=== PATIENT | male | born 1950 | race Caucasian/White ===

== ENCOUNTER 2019-01-01 06:50 | Day surgery (SDC) | payer BC, MEDICARE ==
[2018-12-28 14:16] VITALS: BMI 27.4
[~2019-01-01 06:50] MED LIST: LACTATED RINGERS 1,000 ML IV SCH; LIDOCAINE 1% 20 ML VIAL (10MG/ML) FOR IV START INTRADERMA PRN; MIDAZOLAM 2 MG/2 ML VIAL IV PRN
[2019-01-01] MEDS ORDERED: LACTATED RINGERS 1,000 ML IV ONE (07:17)
[2019-01-01 07:28] VITALS: TEMP 98.6
[2019-01-01] MEDS ORDERED: PROPOFOL 10 MG/ML 20 ML VIAL IV ONE (07:42)
[2019-01-01] MEDS ORDERED: fentaNYL (PF) 50 MCG/ML 2 ML AMP ONE (07:42)
[2019-01-01] MEDS ORDERED: MIDAZOLAM 2 MG/2 ML VIAL ONE (07:42)
--- NOTE | 2019-01-01 07:57 | P.GSHP ---
History of Present Illness H&P Date: 01/01/19 Chief Complaint: Colon polyps, family history colon cancer Patient here today for colonoscopy. Last colonoscopy 3 and half years ago. Patient has a personal history of colon polyps. Patient has a family history of colon cancer in his mother and grandparents Past Medical History Past Medical History: No Reported History Additional Past Medical History / Comment(s): hx. colon polyps, family hx. colon cancer History of Any Multi-Drug Resistant Organisms: None Reported Additional Past Surgical History / Comment(s): colonoscopies, blepharoplasty Past Anesthesia/Blood Transfusion Reactions: No Reported Reaction Smoking Status: Never smoker - Past Family History Mother Family Medical History: No Reported History Medications and Allergies Home Medications Medication Instructions Recorded Confirmed Type Multivitamins, Thera [Multivitamin 1 tab PO DAILY 12/28/18 12/28/18 History (formulary)] Allergies Allergy/AdvReac Type Severity Reaction Status Date / Time No Known Allergies Allergy Verified 01/01/19 07:29 Surgical - Exam Vital Signs Temp Pulse Resp BP Pulse Ox 98.6 F 67 14 177/80 98 01/01/19 07:26 01/01/19 07:26 01/01/19 07:26 01/01/19 07:26 01/01/19 07:26 Physical exam: General: Well-developed, well-nourished HEENT: Normocephalic, sclerae nonicteric Abdomen: Nontender, nondistended Extremities: No edema Neuro: Alert and oriented Assessment and Plan (1) Colon polyp Narrative/Plan: Will proceed with colonoscopy Current Visit: Yes Status: Acute Code(s): K63.5 - POLYP OF COLON SNOMED Code(s): 65997945
--- NOTE | 2019-01-01 08:18 | P.PCN ---
Date of Procedure: 01/01/19 Procedure(s) Performed: PREOPERATIVE DIAGNOSIS: Family history of colon cancer, history of polyps POSTOPERATIVE DIAGNOSIS: Small transverse colon polyp, diverticulosis PROCEDURE: Colonoscopy with biopsy ANESTHESIA: MAC SURGEON: William Robbins M.D. SPECIMENS: Transverse colon polyp ENDOSCOPIC PROCEDURE: The patient was placed on the endoscopy table in the left decubitus position. The Olympus colonoscope was inserted into the anus and passed under direct visualization to the base of the cecum. The appendiceal orifice was visualized. From that point the scope was slowly withdrawn inspecting all surfaces carefully. There were no neoplastic inflammatory or polypoid lesions throughout the cecum or ascending colon. In the transverse colon a small polyp was identified and removed using the cold biopsy forceps. The remainder of the transverse descending sigmoid and rectum appeared normal. There was mild left-sided diverticulosis present. Digital rectal examination was normal. The patient was taken to the recovery room in stable condition per anesthesia guidelines. RECOMMENDATIONS: Await biopsy results. Recommend follow-up colonoscopy 5 years.
[2019-01-01 08:42] VITALS: BP 142/85; PULSE 60; RESP 18
== END 2019-01-01 08:55 | disposition home or self-care (01) ==
LOC: ORWHC2ENDO 06:50
PROVIDERS: ATTEND Surgery
DX: Z80.0 Family history of malignant neoplasm of digestive organs (principal); D12.3 Benign neoplasm of transverse colon; K57.90 Diverticulosis of intestine, part unspecified, without perforation or abscess without bleeding; Z86.010 Personal history of colon polyps
CPT/HCPCS: 88305; 45380; J2250; J3010; J2704